=== PATIENT | male | born 1980 | race Caucasian/White ===

== ENCOUNTER 2021-07-22 08:18 | Emergency (ER) | payer BC, OTHER ==
[~2021-07-22] VITALS: Ht 172.7 cm; Wt 73.5 kg
[2021-07-22] MEDS ORDERED: ONDANSETRON ODT4 MG PO (12:22)
== END 2021-07-22 12:50 | disposition home or self-care (01) ==
LOC: ED 08:18
DX: R11.2 Nausea with vomiting, unspecified (principal); R19.7 Diarrhea, unspecified; Z88.2 Allergy status to sulfonamides; Z20.822 Contact with and (suspected) exposure to COVID-19
CPT/HCPCS: 74177; 80053; 83690; 85025; 86850; 86900; 86901; 96374; 96376; 99284-25; C9803; J2405; J7030; Q9967; U0003